=== PATIENT | male | born 1955 | race African-American/Black ===

== ENCOUNTER 2021-05-19 01:13 | Inpatient (IN) | payer MEDICAID ==
[~2021-05-19] VITALS: Ht 182.9 cm; Wt 71.7 kg
[2021-05-19] VITALS (15 sets, daily range): BP systolic 87–152; BP diastolic 42–88
[2021-05-19] MEDS ORDERED: FAMOTIDINE 20MG/2ML VIAL IV STA (01:55)
[2021-05-19] MEDS ORDERED: MAGNESIUM/ALUMINUM HYDROXIDE/SIMETHICONE 30ML UDC PO STA (01:55)
[2021-05-19] MEDS ORDERED: MORPHINE SULFATE 4 MG/ML CPJ (NOT FOR IM USE) IV STA (01:55)
[2021-05-19] MEDS ORDERED: ONDANSETRON HCL 4MG/2ML INJ IV STA (01:55)
[2021-05-19] MEDS ORDERED: SODIUM CHLORIDE 0.9% 1,000 ML IV ONE (02:00)
[2021-05-19] MEDS ORDERED: CEFTRIAXONE 1 G PREMIX 50 ML IV ONE (02:00)
[2021-05-19] MEDS ORDERED: CLINDAMYCIN 600 MG in DEXTROSE 5% WATER 50 ML IV ONE (02:00)
[2021-05-19] MEDS ORDERED: VANCOMYCIN 1 G PREMIX 200 ML IV ONE (02:00)
[2021-05-19 02:37] LABS: BASOPHILS % 0.2 % (0.0-2.0); EOSINOPHILS % 0.2 % (0.0-5.0); LYMPHOCYTES % 9.5 % (20.0-50.0); MEAN CORPUSCULAR HEMOGLOBIN 34.3 pg (28.0-32.0); MEAN CORPUSCULAR VOLUME 95.4 fL (80.0-94.0); MEAN PLATELET VOLUME 7.3 fl (7.4-10.4); MONOCYTES % 4.1 % (2.0-8.0); PLATELET 302 x1000/uL (130-400); RED BLOOD CELL COUNT 1.56 mill/uL (4.7-6.1); RED CELL DISTRIBUTION WIDTH 18.3 % (11.6-14.6)
[2021-05-19 02:43] LABS: HEMATOCRIT. 14.9 % (42.0-52.0); HEMOGLOBIN. 5.4 g/dL (14.0-18.0)
[2021-05-19 02:44] LABS: CHLORIDE 103 mEq/L (98-107)
[2021-05-19] MEDS ORDERED: CLINDAMYCIN 600MG PREMIX 50 ML IV SCH (03:00)
[2021-05-19 09:04] LABS: MEAN CORPUSCULAR HEMOGLOBIN 32.6 pg (28.0-32.0); MEAN CORPUSCULAR VOLUME 94.1 fL (80.0-94.0); PLATELET 238 x1000/uL (130-400); RED BLOOD CELL COUNT 2.06 mill/uL (4.7-6.1); RED CELL DISTRIBUTION WIDTH 16.5 % (11.6-14.6)
[2021-05-19 09:14] LABS: HEMATOCRIT 19.4 % (42.0-52.0); HEMOGLOBIN 6.7 g/dL (14.0-18.0)
[2021-05-19] MEDS ORDERED: AMOX1TAB16 MT (12:04)
[2021-05-19] MEDS ORDERED: AMLO10TA80 PO (12:06)
[2021-05-19] MEDS ORDERED: FOLI-43 PO (12:06)
[2021-05-19] MEDS: AMPICILLIN SOD/SULBACTAM NA 3 G in SODIUM CHLORIDE 0.9% 100 ML IV SCH ×2 (12:32→17:57)
[2021-05-19] MEDS: ACETAMINOPHEN 325MG TABLET PO PRN ×2 (17:57→21:48)
[2021-05-19 19:29] LABS: HEMATOCRIT 22.5 % (42.0-52.0); HEMOGLOBIN 8.1 g/dL (14.0-18.0)
[2021-05-19] MEDS: ONDANSETRON HCL 4MG/2ML INJ IV PRN (21:48)
[2021-05-19] MEDS ORDERED: MORPHINE SULFATE 2 MG/ML CPJ (NOT FOR IM USE) IV ONE (23:45)
[2021-05-19] MEDS ORDERED: MORPHINE SULFATE 2 MG/ML CPJ (NOT FOR IM USE) IV NR (23:45)
[2021-05-20] VITALS (21 sets, daily range): BP systolic 79–156; BP diastolic 37–96
[2021-05-20] MEDS: AMPICILLIN SOD/SULBACTAM NA 3 G in SODIUM CHLORIDE 0.9% 100 ML IV SCH ×4 (00:24→18:26)
[2021-05-20 06:59] LABS: BASOPHILS % 0.3 % (0.0-2.0); EOSINOPHILS % 0.4 % (0.0-5.0); HEMATOCRIT. 23.6 % (42.0-52.0); HEMOGLOBIN. 8.2 g/dL (14.0-18.0); LYMPHOCYTES % 16.5 % (20.0-50.0); MEAN CORPUSCULAR HEMOGLOBIN 32.3 pg (28.0-32.0); MEAN CORPUSCULAR VOLUME 92.7 fL (80.0-94.0); MEAN PLATELET VOLUME 7.7 fl (7.4-10.4); MONOCYTES % 5.9 % (2.0-8.0); NEUTROPHILS % 76.9 % (40.0-76.0); PLATELET 295 x1000/uL (130-400); RED BLOOD CELL COUNT 2.54 mill/uL (4.7-6.1); RED CELL DISTRIBUTION WIDTH 16.7 % (11.6-14.6)
[2021-05-20 07:04] LABS: PROTHROMBIN TIME 10.6 sec (9.6-11.0)
[2021-05-20 07:45] LABS: CHLORIDE 103 mEq/L (98-107)
[2021-05-20 07:52] LABS: TOTAL IRON BINDING CAPACITY 237 ug/dL (250-450)
[2021-05-20 08:02] LABS: FOLIC ACID (FOLATE) SERUM 6.9 ng/mL (>5.38)
[2021-05-20 12:10] LABS: HEMATOCRIT 17.6 % (42.0-52.0); HEMOGLOBIN 6.1 g/dL (14.0-18.0)
[2021-05-20] MEDS: ONDANSETRON HCL 4MG/2ML INJ IV PRN (12:41)
[2021-05-20] MEDS ORDERED: NALOXONE HCL 0.4MG/ML VIAL IV PRN (13:15)
[2021-05-20] MEDS: TRAMADOL 50MG TABLET PO PRN (13:17)
[2021-05-20] MEDS: LORAZEPAM 2MG/ML CPJ IV PRN (13:41)
[2021-05-20] MEDS ORDERED: MAGNESIUM/ALUMINUM HYDROXIDE/SIMETHICONE 30ML UDC PO PRN (16:00)
[2021-05-21] VITALS (11 sets, daily range): BP systolic 115–156; BP diastolic 59–90
[2021-05-21 05:18] LABS: BASOPHILS % 0.4 % (0.0-2.0); EOSINOPHILS % 0.3 % (0.0-5.0); HEMATOCRIT. 22.7 % (42.0-52.0); HEMOGLOBIN. 8.3 g/dL (14.0-18.0); LYMPHOCYTES % 19.3 % (20.0-50.0); MEAN CORPUSCULAR VOLUME 90.1 fL (80.0-94.0); MEAN PLATELET VOLUME 7.8 fl (7.4-10.4); MONOCYTES % 5.9 % (2.0-8.0); NEUTROPHILS % 74.1 % (40.0-76.0); PLATELET 247 x1000/uL (130-400); RED BLOOD CELL COUNT 2.52 mill/uL (4.7-6.1); RED CELL DISTRIBUTION WIDTH 15.8 % (11.6-14.6)
[2021-05-21 05:19] LABS: CHLORIDE 106 mEq/L (98-107)
[2021-05-21] MEDS: LORAZEPAM 2MG/ML CPJ IV PRN (05:23)
[2021-05-21] MEDS: AMPICILLIN SOD/SULBACTAM NA 3 G in SODIUM CHLORIDE 0.9% 100 ML IV SCH ×4 (05:34→23:42)
[2021-05-21] MEDS: ONDANSETRON HCL 4MG/2ML INJ IV PRN ×2 (05:38→23:41)
[2021-05-21] MEDS: ACETAMINOPHEN 325MG TABLET PO PRN (08:32)
[2021-05-21] MEDS: TRAMADOL 50MG TABLET PO PRN ×3 (09:41→23:41)
[2021-05-21 10:44] LABS: HEMATOCRIT 23.6 % (42.0-52.0); HEMOGLOBIN 8.2 g/dL (14.0-18.0)
[2021-05-21] MEDS: ONDANSETRON 4MG ODT PO PRN (10:57)
[2021-05-21] MEDS ORDERED: LIDOCAINE HCL 1% 20ML VIAL (Pyxis) INJ ONE (11:04)
[2021-05-22] VITALS (21 sets, daily range): BP systolic 91–148; BP diastolic 52–82
[2021-05-22 05:36] LABS: BASOPHILS % 0.7 % (0.0-2.0); EOSINOPHILS % 0.5 % (0.0-5.0); LYMPHOCYTES % 24.3 % (20.0-50.0); MEAN CORPUSCULAR HEMOGLOBIN 31.7 pg (28.0-32.0); MEAN CORPUSCULAR VOLUME 90.2 fL (80.0-94.0); MEAN PLATELET VOLUME 7.1 fl (7.4-10.4); MONOCYTES % 7.2 % (2.0-8.0); NEUTROPHILS % 67.3 % (40.0-76.0); PLATELET 239 x1000/uL (130-400); RED BLOOD CELL COUNT 1.86 mill/uL (4.7-6.1); RED CELL DISTRIBUTION WIDTH 15.7 % (11.6-14.6)
[2021-05-22 05:43] LABS: HEMOGLOBIN. 5.9 g/dL (14.0-18.0)
[2021-05-22 05:44] LABS: HEMATOCRIT. 16.7 % (42.0-52.0)
[2021-05-22] MEDS: AMPICILLIN SOD/SULBACTAM NA 3 G in SODIUM CHLORIDE 0.9% 100 ML IV SCH ×3 (05:49→17:01)
[2021-05-22] MEDS: TRAMADOL 50MG TABLET PO PRN ×2 (05:51→13:02)
[2021-05-22 06:16] LABS: CHLORIDE 106 mEq/L (98-107)
[2021-05-22] MEDS ORDERED: SODIUM CHLORIDE 0.9% 1000ML BAG (SEPSIS BOLUS) IV PRN (10:00)
[2021-05-22] MEDS ORDERED: SODIUM CHLORIDE 0.9% 500 ML IV PRN (10:30)
[2021-05-22] MEDS: ONDANSETRON 4MG ODT PO PRN (11:15)
[2021-05-22] MEDS: LORAZEPAM 2MG/ML CPJ IV PRN (13:07)
[2021-05-22] MEDS ORDERED: SORBITOL 70% SOLN 30ML PO NR ×2 (16:00→20:00)
[2021-05-22] MEDS: ONDANSETRON HCL 4MG/2ML INJ IV PRN (21:59)
[2021-05-23] VITALS (12 sets, daily range): BP systolic 103–142; BP diastolic 56–91
[2021-05-23] MEDS: AMPICILLIN SOD/SULBACTAM NA 3 G in SODIUM CHLORIDE 0.9% 100 ML IV SCH ×4 (00:25→17:26)
[2021-05-23 05:13] LABS: BASOPHILS % 0.8 % (0.0-2.0); EOSINOPHILS % 0.5 % (0.0-5.0); HEMATOCRIT. 21.7 % (42.0-52.0); HEMOGLOBIN. 7.4 g/dL (14.0-18.0); MEAN CORPUSCULAR HEMOGLOBIN 31.2 pg (28.0-32.0); MEAN CORPUSCULAR VOLUME 91.2 fL (80.0-94.0); MEAN PLATELET VOLUME 7.3 fl (7.4-10.4); MONOCYTES % 7.5 % (2.0-8.0); NEUTROPHILS % 71.2 % (40.0-76.0); PLATELET 261 x1000/uL (130-400); RED BLOOD CELL COUNT 2.38 mill/uL (4.7-6.1); RED CELL DISTRIBUTION WIDTH 15.8 % (11.6-14.6)
[2021-05-23 05:17] LABS: CHLORIDE 111 mEq/L (98-107)
[2021-05-23] MEDS ORDERED: NA PHOS,M-B/NA PHOS,DI-BA ENEMA 118ML PR NR ×2 (07:00)
[2021-05-23] MEDS ORDERED: MORPHINE SULFATE 2 MG/ML CPJ (NOT FOR IM USE) IV NR (11:45)
[2021-05-23] MEDS ORDERED: MIDAZOLAM HCL 5 MG/5 ML VIAL IV PRN (13:03)
[2021-05-23] MEDS ORDERED: FENTANYL CITRATE/PF 50MCG/ML 2ML VIAL IV PRN (13:03)
[2021-05-23] MEDS ORDERED: MIDAZOLAM HCL 5 MG/5 ML VIAL ONE (13:03)
[2021-05-23] MEDS ORDERED: FENTANYL CITRATE/PF 50MCG/ML 2ML VIAL ONE (13:03)
[2021-05-23] MEDS: TRAMADOL 50MG TABLET PO PRN (17:42)
[2021-05-23] MEDS: ONDANSETRON HCL 4MG/2ML INJ IV PRN (18:19)
[2021-05-24] VITALS (25 sets, daily range): BP systolic 106–160; BP diastolic 50–90
[2021-05-24] MEDS: AMPICILLIN SOD/SULBACTAM NA 3 G in SODIUM CHLORIDE 0.9% 100 ML IV SCH ×3 (00:39→11:59)
[2021-05-24 06:10] LABS: BASOPHILS % 0.8 % (0.0-2.0); EOSINOPHILS % 0.8 % (0.0-5.0); LYMPHOCYTES % 21.6 % (20.0-50.0); MEAN CORPUSCULAR HEMOGLOBIN 32.2 pg (28.0-32.0); MEAN CORPUSCULAR VOLUME 92.7 fL (80.0-94.0); MEAN PLATELET VOLUME 7.7 fl (7.4-10.4); MONOCYTES % 5.8 % (2.0-8.0); PLATELET 213 x1000/uL (130-400); RED BLOOD CELL COUNT 1.36 mill/uL (4.7-6.1); RED CELL DISTRIBUTION WIDTH 15.1 % (11.6-14.6)
[2021-05-24 06:22] LABS: CHLORIDE 110 mEq/L (98-107)
[2021-05-24 07:06] LABS: HEMATOCRIT. 12.6 % (42.0-52.0); HEMOGLOBIN. 4.4 g/dL (14.0-18.0)
[2021-05-24] MEDS: ONDANSETRON HCL 4MG/2ML INJ IV PRN ×2 (13:32→20:11)
[2021-05-24 15:17] LABS: *AMPHETAMINES SCREEN URINE NEGATIVE (NEGATIVE); *BARBITURATES SCREEN URINE NEGATIVE (NEGATIVE); *BENZODIAZEPINES SCREEN URINE PRESUMTIVE POSITIVE (NEGATIVE); *COCAINE SCREEN URINE NEGATIVE (NEGATIVE)
[2021-05-24 15:18] LABS: CANNABINOID URINE SCREEN NEGATIVE (NEGATIVE); METHADONE URINE SCREEN NEGATIVE (NEGATIVE); OPIATES URINE SCREEN NEGATIVE (NEGATIVE); PHENCYCLIDINE URINE SCREEN NEGATIVE (NEGATIVE)
[2021-05-24] MEDS ORDERED: SORBITOL 70% SOLN 30ML PO NR (21:00)
[2021-05-24] MEDS: ACETAMINOPHEN 325MG TABLET PO PRN (21:03)
[2021-05-25] VITALS (34 sets, daily range): BP systolic 102–163; BP diastolic 46–101
[2021-05-25] MEDS ORDERED: SORBITOL 70% SOLN 30ML PO NR (06:00)
[2021-05-25 06:47] LABS: BASOPHILS % 0.8 % (0.0-2.0); EOSINOPHILS % 0.9 % (0.0-5.0); HEMATOCRIT. 21.6 % (42.0-52.0); LYMPHOCYTES % 15.3 % (20.0-50.0); MEAN CORPUSCULAR HEMOGLOBIN 30.6 pg (28.0-32.0); MEAN CORPUSCULAR VOLUME 87.5 fL (80.0-94.0); MEAN PLATELET VOLUME 7.5 fl (7.4-10.4); MONOCYTES % 4.9 % (2.0-8.0); NEUTROPHILS % 78.1 % (40.0-76.0); PLATELET 214 x1000/uL (130-400); RED BLOOD CELL COUNT 2.47 mill/uL (4.7-6.1); RED CELL DISTRIBUTION WIDTH 15.4 % (11.6-14.6)
[2021-05-25 06:52] LABS: CHLORIDE 112 mEq/L (98-107)
[2021-05-25 07:15] LABS: HEMOGLOBIN. 7.6 g/dL (14.0-18.0)
[2021-05-25] MEDS ORDERED: NA PHOS,M-B/NA PHOS,DI-BA ENEMA 118ML PR NR (08:00)
[2021-05-25] MEDS ORDERED: LIDOCAINE HCL 1% 20ML VIAL (Pyxis) INJ ONE (09:13)
[2021-05-25] MEDS ORDERED: IOHEXOL-300 100 ML BOTTLE ONE ×2 (09:13→09:24)
[2021-05-25] MEDS ORDERED: IODIXANOL 320MG/ML 100 ML BOTTLE IV ONE (09:22)
[2021-05-25 16:59] LABS: HEMATOCRIT 28.7 % (42.0-52.0); HEMOGLOBIN 9.7 g/dL (14.0-18.0)
[2021-05-25] MEDS: ACETAMINOPHEN 325MG TABLET PO PRN (20:45)
[2021-05-25] MEDS ORDERED: SORBITOL 70% SOLN 30ML PO SCH (21:00)
[2021-05-25] MEDS: ONDANSETRON HCL 4MG/2ML INJ IV PRN (22:15)
[2021-05-26] VITALS (18 sets, daily range): BP systolic 93–149; BP diastolic 56–86
[2021-05-26] MEDS ORDERED: SORBITOL 70% SOLN 30ML PO SCH (06:00)
[2021-05-26 06:14] LABS: PARTIAL THROMBOPLASTIN TIME 25.3 sec (23.4-31.0)
[2021-05-26 06:20] LABS: CHLORIDE 113 mEq/L (98-107)
[2021-05-26 06:25] LABS: HEMATOCRIT 23.7 % (42.0-52.0); HEMOGLOBIN 8.4 g/dL (14.0-18.0); MEAN CORPUSCULAR HEMOGLOBIN 30.8 pg (28.0-32.0); MEAN CORPUSCULAR VOLUME 87.2 fL (80.0-94.0); PLATELET 193 x1000/uL (130-400); RED BLOOD CELL COUNT 2.71 mill/uL (4.7-6.1); RED CELL DISTRIBUTION WIDTH 15.5 % (11.6-14.6)
[2021-05-26] MEDS ORDERED: NA PHOS,M-B/NA PHOS,DI-BA ENEMA 118ML PR ONE (08:00)
[2021-05-26 11:01] LABS: HEMATOCRIT 23.3 % (42.0-52.0); HEMOGLOBIN 8.1 g/dL (14.0-18.0)
[2021-05-26] MEDS ORDERED: MORPHINE SULFATE 2 MG/ML CPJ (NOT FOR IM USE) IV SCH (13:15)
[2021-05-26] MEDS: DEXT 5%/0.45% NACL 1000ML 1,000 ML IV SCH (15:45)
[2021-05-26 19:48] LABS: HEMATOCRIT 23.3 % (42.0-52.0); HEMOGLOBIN 8.1 g/dL (14.0-18.0)
[2021-05-26] MEDS ORDERED: ONDANSETRON HCL 4MG/2ML INJ IV NR (21:00)
[2021-05-26] MEDS ORDERED: SORBITOL 70% SOLN 30ML PO NR (21:00)
[2021-05-26] MEDS: METOCLOPRAMIDE HCL 10MG/2ML VIAL IV SCH (21:24)
[2021-05-26 23:25] LABS: HEMATOCRIT 25.7 % (42.0-52.0); HEMOGLOBIN 8.9 g/dL (14.0-18.0)
[2021-05-27] VITALS (18 sets, daily range): BP systolic 106–161; BP diastolic 61–98
[2021-05-27] MEDS: METOCLOPRAMIDE HCL 10MG/2ML VIAL IV SCH ×4 (00:30→20:45)
[2021-05-27] MEDS: ONDANSETRON HCL 4MG/2ML INJ IV PRN (03:04)
[2021-05-27] MEDS ORDERED: NALOXONE HCL 0.4MG/ML VIAL IV PRN (05:00)
[2021-05-27] MEDS: MORPHINE SULFATE 2 MG/ML CPJ (NOT FOR IM USE) IV PRN ×4 (05:10→15:14)
[2021-05-27 06:43] LABS: CHLORIDE 109 mEq/L (98-107)
[2021-05-27 06:57] LABS: BASOPHILS % 0.6 % (0.0-2.0); EOSINOPHILS % 0.8 % (0.0-5.0); HEMATOCRIT. 30.2 % (42.0-52.0); HEMOGLOBIN. 10.4 g/dL (14.0-18.0); LYMPHOCYTES % 12.2 % (20.0-50.0); MEAN CORPUSCULAR HEMOGLOBIN 30.6 pg (28.0-32.0); MEAN PLATELET VOLUME 7.7 fl (7.4-10.4); MONOCYTES % 6.9 % (2.0-8.0); NEUTROPHILS % 79.5 % (40.0-76.0); PLATELET 189 x1000/uL (130-400); RED BLOOD CELL COUNT 3.39 mill/uL (4.7-6.1); RED CELL DISTRIBUTION WIDTH 15.1 % (11.6-14.6)
[2021-05-27] MEDS ORDERED: MIDAZOLAM HCL 5 MG/5 ML VIAL ONE (09:26)
[2021-05-27] MEDS ORDERED: DIAZEPAM 5 MG/ML 2ML CPJ ONE (09:26)
[2021-05-27] MEDS ORDERED: FENTANYL CITRATE/PF 50MCG/ML 2ML VIAL ONE (09:26)
[2021-05-27] MEDS ORDERED: FENTANYL CITRATE/PF 50MCG/ML 2ML VIAL IV PRN (09:30)
[2021-05-27] MEDS ORDERED: MIDAZOLAM HCL 5 MG/5 ML VIAL IV PRN (09:31)
[2021-05-27] MEDS: SUCRALFATE 1G TABLET PO SCH ×3 (13:19→20:42)
[2021-05-27] MEDS: PANTOPRAZOLE SODIUM 40 MG/VIAL IV SCH (18:54)
[2021-05-27] MEDS ORDERED: MORPHINE SULFATE 2 MG/ML CPJ (NOT FOR IM USE) IV NR (19:00)
[2021-05-27] MEDS ORDERED: DIATR MEGLU/DIATRIZOATE SOLN 30ML PO SCH (23:36)
[2021-05-28] VITALS (12 sets, daily range): BP systolic 90–153; BP diastolic 43–105
[2021-05-28] MEDS: METOCLOPRAMIDE HCL 10MG/2ML VIAL IV SCH ×5 (00:53→23:13)
[2021-05-28] MEDS: MORPHINE SULFATE 2 MG/ML CPJ (NOT FOR IM USE) IV PRN ×2 (02:51→10:09)
[2021-05-28] MEDS ORDERED: IOHEXOL-300 100 ML BOTTLE ONE (05:56)
[2021-05-28] MEDS: SUCRALFATE 1G TABLET PO SCH ×4 (06:23→20:34)
[2021-05-28] MEDS: ONDANSETRON HCL 4MG/2ML INJ IV PRN (06:30)
[2021-05-28 07:13] LABS: BASOPHILS % 0.6 % (0.0-2.0); EOSINOPHILS % 1.3 % (0.0-5.0); HEMATOCRIT. 26.6 % (42.0-52.0); HEMOGLOBIN. 9.2 g/dL (14.0-18.0); MEAN CORPUSCULAR VOLUME 89.7 fL (80.0-94.0); MEAN PLATELET VOLUME 7.8 fl (7.4-10.4); NEUTROPHILS % 79.1 % (40.0-76.0); PLATELET 193 x1000/uL (130-400); RED BLOOD CELL COUNT 2.96 mill/uL (4.7-6.1); RED CELL DISTRIBUTION WIDTH 15.8 % (11.6-14.6)
[2021-05-28 07:17] LABS: CHLORIDE 105 mEq/L (98-107)
[2021-05-28] MEDS: PANTOPRAZOLE SODIUM 40 MG/VIAL IV SCH ×2 (08:41→17:59)
[2021-05-28] MEDS: DEXT 5%/0.45% NACL 1000ML 1,000 ML IV SCH (20:38)
[2021-05-29] VITALS (12 sets, daily range): BP systolic 91–151; BP diastolic 46–67
[2021-05-29] MEDS: METOCLOPRAMIDE HCL 10MG/2ML VIAL IV SCH ×4 (06:19→23:48)
[2021-05-29] MEDS: SUCRALFATE 1G TABLET PO SCH ×4 (06:20→22:00)
[2021-05-29] MEDS: DEXT 5%/0.45% NACL 1000ML 1,000 ML IV SCH ×3 (06:23→14:02)
[2021-05-29] MEDS: PANTOPRAZOLE SODIUM 40 MG/VIAL IV SCH ×2 (08:35→17:29)
[2021-05-29 13:06] LABS: HGB A2 2.6 % (1.8-3.2)
[2021-05-30] VITALS (7 sets, daily range): BP systolic 110–149; BP diastolic 43–66
[2021-05-30] MEDS: DEXT 5%/0.45% NACL 1000ML 1,000 ML IV SCH ×2 (03:27→08:44)
[2021-05-30] MEDS: MORPHINE SULFATE 2 MG/ML CPJ (NOT FOR IM USE) IV PRN (03:31)
[2021-05-30] MEDS: SUCRALFATE 1G TABLET PO SCH (06:17)
[2021-05-30] MEDS: METOCLOPRAMIDE HCL 10MG/2ML VIAL IV SCH (06:17)
[2021-05-30] MEDS: PANTOPRAZOLE SODIUM 40 MG/VIAL IV SCH (08:43)
[2021-05-30 09:12] LABS: BASOPHILS % 0.3 % (0.0-2.0); EOSINOPHILS % 1.5 % (0.0-5.0); HEMATOCRIT. 23.4 % (42.0-52.0); HEMOGLOBIN. 8.2 g/dL (14.0-18.0); LYMPHOCYTES % 21.2 % (20.0-50.0); MEAN CORPUSCULAR HEMOGLOBIN 32.2 pg (28.0-32.0); MEAN CORPUSCULAR VOLUME 91.4 fL (80.0-94.0); MEAN PLATELET VOLUME 7.3 fl (7.4-10.4); MONOCYTES % 7.4 % (2.0-8.0); NEUTROPHILS % 69.6 % (40.0-76.0); PLATELET 256 x1000/uL (130-400); RED BLOOD CELL COUNT 2.56 mill/uL (4.7-6.1); RED CELL DISTRIBUTION WIDTH 17.2 % (11.6-14.6)
[2021-05-30 09:18] LABS: CHLORIDE 111 mEq/L (98-107)
[2021-05-30] MEDS ORDERED: SUCR1TAB30 PO (10:00)
[2021-05-30] MEDS ORDERED: OMEP40CA20 MT (10:00)
[2021-06-09] MEDS ORDERED: ONDA4TAB5 MT (10:38)
[2021-06-09] MEDS ORDERED: THIA100T72 MT (10:38)
== END 2021-05-30 12:40 | disposition home or self-care (01) | DRG 241 ==
LOC: ER 01:13 → EDBEDREQ 03:09 → MICUSO 04:18 → EDBEDREQTM 04:25 → EDBEDREQ 04:25 → 5EST 09:45
PROVIDERS: ADMIT Internal Medicine; ATTEND Internal Medicine
PROC: 30233N1 Transfusion of Nonautologous Red Blood Cells into Peripheral Vein, Percutaneous Approach (ICD-10-PCS; 2021-05-19)
PROC: 0DJD8ZZ Inspection of Lower Intestinal Tract, Via Natural or Artificial Opening Endoscopic (ICD-10-PCS; principal; 2021-05-23)
PROC: 02HV33Z Insertion of Infusion Device into Superior Vena Cava, Percutaneous Approach (ICD-10-PCS; 2021-05-23)
PROC: B548ZZA Ultrasonography of Superior Vena Cava, Guidance (ICD-10-PCS; 2021-05-23)
PROC: 0DB78ZX Excision of Stomach, Pylorus, Via Natural or Artificial Opening Endoscopic, Diagnostic (ICD-10-PCS; 2021-05-27)
PROC: 0DJD8ZZ Inspection of Lower Intestinal Tract, Via Natural or Artificial Opening Endoscopic (ICD-10-PCS; 2021-05-27)
PROC: 30233K1 Transfusion of Nonautologous Frozen Plasma into Peripheral Vein, Percutaneous Approach (ICD-10-PCS; 2021-05-27)
DX: K29.81 Duodenitis with bleeding (principal); E43 Unspecified severe protein-calorie malnutrition; G90.8 Other disorders of autonomic nervous system; D62 Acute posthemorrhagic anemia; F17.210 Nicotine dependence, cigarettes, uncomplicated; D64.9 Anemia, unspecified; E27.9 Disorder of adrenal gland, unspecified; K26.4 Chronic or unspecified duodenal ulcer with hemorrhage; K29.71 Gastritis, unspecified, with bleeding; K04.7 Periapical abscess without sinus; K40.90 Unilateral inguinal hernia, without obstruction or gangrene, not specified as recurrent; I10 Essential (primary) hypertension; Z20.822 Contact with and (suspected) exposure to COVID-19; Z79.2 Long term (current) use of antibiotics; Z79.899 Other long term (current) drug therapy; Z82.49 Family history of ischemic heart disease and other diseases of the circulatory system; Z71.6 Tobacco abuse counseling; Z68.21 Body mass index [BMI] 21.0-21.9, adult
CPT/HCPCS: 36415; 71045; 74177; 75726; 75774; 76937; 78278; 80048; 80053; 80305; 82270; 82607; 82728; 82746; 82962; 83021; 83540; 83550; 83605; 84145; 84484; 85014; 85018; 85025; 85027; 85660; 86850; 86900; 86920; 86927; 87426; 88305; 88312; 88313; 93005; 97162; 97166; 99152; 99291; A6261; A9560; C1725; C1730; C1769; C9113; J0295; J0696; J1644; J2060; J2250; J2270; J2405; J2765; J3010; J3370; J3490; J7030; J7040; J7042; J7050; J7060; P9016; P9017; Q0162; Q9963; Q9967; G0500

== ENCOUNTER 2022-08-04 10:56 | Emergency (ER) | payer MEDICAID, OTHER ==
[~2022-08-04] VITALS: Ht 175.3 cm; Wt 80.0 kg
[~2022-08-04 10:56] MED LIST: AMLO10TA80 PO; FOLI-43 PO; OMEP40CA20 MT; ONDA4TAB5 MT; SUCR1TAB30 PO; THIA100T72 MT
[2022-08-04 11:23] VITALS: BP 135/54
== END 2022-08-04 18:29 | disposition left against medical advice (07) ==
LOC: ER 10:56
DX: Z53.21 Procedure and treatment not carried out due to patient leaving prior to being seen by health care provider (principal)